=== PATIENT | male | born 1975 | race Two or more races ===

== ENCOUNTER 2021-02-21 19:00 | Inpatient (IN) | payer OTHER ==
[2021-04-03] MEDS ORDERED: HYOSCYAMINE0.125 M1 SL (15:51)
[2021-04-03] MEDS ORDERED: INTESTINEX680 M1 PO (15:51)
[2021-04-03] MEDS ORDERED: TRAMADOL HCL50 MG PO (15:51)
== END 2021-04-03 18:44 | disposition home or self-care (01) | DRG 330 ==
LOC: SURG 19:00 → SURH 03-14 14:30
PROVIDERS: ADMIT Surgery; ATTEND Surgery
PROC: 02HV33Z Insertion of Infusion Device into Superior Vena Cava, Percutaneous Approach (ICD-10-PCS; 2021-02-22)
PROC: 0DNW4ZZ Release Peritoneum, Percutaneous Endoscopic Approach (ICD-10-PCS; 2021-03-05)
PROC: 0DBU0ZZ Excision of Omentum, Open Approach (ICD-10-PCS; 2021-03-05)
PROC: 0DTF0ZZ Resection of Right Large Intestine, Open Approach (ICD-10-PCS; principal; 2021-03-05 13:38)
PROC: 8E0ZXY6 Isolation (ICD-10-PCS; 2021-03-14)
DX: K50.114 Crohn's disease of large intestine with abscess (principal); K63.2 Fistula of intestine; T81.43XA Infection following a procedure, organ and space surgical site, initial encounter; K91.872 Postprocedural seroma of a digestive system organ or structure following a digestive system procedure; E16.2 Hypoglycemia, unspecified; Z20.822 Contact with and (suspected) exposure to COVID-19; Z53.31 Laparoscopic surgical procedure converted to open procedure; B96.20 Unspecified Escherichia coli [E. coli] as the cause of diseases classified elsewhere; F43.21 Adjustment disorder with depressed mood; E87.6 Hypokalemia; K50.118 Crohn's disease of large intestine with other complication; F17.200 Nicotine dependence, unspecified, uncomplicated; K66.0 Peritoneal adhesions (postprocedural) (postinfection)